=== PATIENT | male | born 1995 | race Two or more races ===

== ENCOUNTER 2020-11-19 01:07 | Emergency (ER) | payer OTHER ==
--- NOTE | 2020-11-19 01:47 | ED Physician Documentation ---
PD HPI WOUND RECHECK - Stated complaint Stated Complaint: INCISION CHECK - Chief complaint Chief Complaint: Wound - Histroy obtained from History obtained from: Patient - History of Present Illness Location: (had vasectomy [address] Arvizu, and was healing okay. Now with 2-3 days of some tenderness at left scrotal site. Mild drainage from the wound. Tender underneath it.) Timing - onset: How many days ago (few) Associated symptoms: Swelling, Drainage, Pain. No: Redness Recently seen: Clinic (had vasectomy 2 weeks ago in Urology office. No problems at the time.) Review of Systems Constitutional: denies: Fever, Chills : denies: Dysuria, Frequency Skin: denies: Rash PD PAST MEDICAL HISTORY - Past Medical History Past Medical History: No - Past Surgical History Past Surgical History: Yes - Present Medications Home Medications: Ambulatory Orders Medication Instructions Recorded Confirmed Mupirocin Calcium [Mupirocin] 1 applic TP TID #15 gm 11/19/20 Sulfamethox/Trimeth 800/160 1 each PO BID #14 tablet 11/19/20 [Bactrim Ds 800/160] - Allergies Allergies/Adverse Reactions: Allergies Allergy/AdvReac Type Severity Reaction Status Date / Time No Known Drug Allergies Allergy Verified 11/19/20 01:14 - Social History Does the pt smoke?: No Smoking Status: Never smoker Does the pt drink ETOH?: Yes Does the pt have substance abuse?: No - Immunizations Immunizations are current?: Yes - POLST Patient has POLST: No PD ED PE NORMAL - Vitals Vital signs reviewed: Yes - General General: Alert and oriented X 3, No acute distress, Well developed/nourished - Abdomen Abdomen: Soft, Non tender - Male Male : Other (right scrotal wound without tenderness nor signs of infection. left scrotal wound with some induration/tenderness but no fluctuance. Bedside U/S did not show any fluid pocket. Mild redness of skin at that wound area. No current drainage. ) - Derm Derm: Normal color, Warm and dry Results - Vitals Vitals: Vital Signs - 24 hr 11/19/20 11/19/20 11/19/20 01:12 01:26 02:22 Temperature 36.5 C 36.5 C 36.6 C Heart Rate 93 93 79 Respiratory 16 16 16 Rate Blood Pressure 135/90 H 135/90 H 131/89 H O2 Saturation 98 98 99 Oxygen O2 Source Room air PD MEDICAL DECISION MAKING - ED course Complexity details: considered differential (c/w mild wound infection. ), d/w patient Departure - Departure Disposition: 01 Home, Self Care Clinical Impression: S/P vasectomy, Wound infection Condition: Stable Record reviewed to determine appropriate education?: Yes Instructions: ED Staph Infec Abx Tx Only Follow-Up: Jo Arvizu MD [Provider Admit Priv/Credential] - Prescriptions: Sulfamethox/Trimeth 800/160 [Bactrim Ds 800/160] 1 each PO BID #14 tablet Mupirocin Calcium [Mupirocin] 1 applic TP TID #15 gm Comments: Warm moist compresses or soaks to the area once or twice daily. Mupirocin topical antibiotic 2-3 times daily lightly to the wounds. Bactrim antibiotic twice daily for 5 to 7 days. I would anticipate improvement in this over the next several days. Recheck if not improved in that timeframe with your urologist. Discharge Date/Time: 11/19/20 02:22
[2020-11-19] MEDS ORDERED: MUPIROCIN 2% OINT 1 GM TOP STA (02:13)
[2020-11-19] MEDS ORDERED: SULFAMETH/TRIMETH DS 800/160 MG TABLET PO STA (02:13)
[2020-11-19 02:23] VITALS: BP 131/89
== END 2020-11-19 02:22 | disposition home or self-care (01) ==
LOC: ED 01:07
DX: T81.40XA Infection following a procedure, unspecified, initial encounter (principal); Z98.52 Vasectomy status
CPT/HCPCS: 99282; 99283; A9270